=== PATIENT | female | born 1975 | race Hispanic/Latino ===

== ENCOUNTER 2020-04-29 06:18 | Day surgery (SDC) | payer BC ==
--- OUTSIDE RECORDS SUMMARY | 2020-04-29 06:21 | XMS REPORT ---
:1975 Author Organization [facility] Address [address] [place], [address] [place] [address] Care Team Providers Name Role Phone Lloyd Unavailable [phone] PROBLEMS Type Condition ICD9-CM [id number] Onset Condition SNOMED Code Notes Code Code Dates Status Problem Current F32.1 Active 40066165 moderate episode of major depressive disorder without prior episode Problem MARIKA F41.1 Active 64817127 (generalized anxiety disorder) Problem Non-seasonal J30.89 Active 96777518 allergic rhinitis, unspecified trigger ALLERGIES Allergen (clinical drug Drug/Non Drug Allergy Reaction Allergy Type Onset Date Status ingredient) documented on EMR zolpidem Ambien([facility] [place] Drug Allergy Active Code:[address]-96) ENCOUNTERS from 1975 to 2020-04-02 Encounter Location Date Provider Diagnosis [facility] [address] [place], [facility] [address], [place] [address] depressive dis order without prior e pisode F32.1 ; MARIKA (generalized an xiety disorder) F41.1 ; Non-seasonal al lergic rhinitis, unspe cified trigger J30.89 and Hematochezia K9 2.1 IMMUNIZATIONS Vaccine Route Administration Date Status Kenalog (Triamcinolone) IM Intramuscular Apr 02, 2020 Adminis tered SOCIAL HISTORY Tobacco Use: Social History Observation Description Date Details (start date - stop date) Never Smoker Sex Assigned At : Social History Observation Description Sex Assigned At Unknown PHQ9 Question Answer Notes Little interest or pleasure in doing things More than half t he days Feeling down, depressed, or hopeless More than half the days Trouble falling or staying asleep or sleeping too much More than half the days Feeling tired or having little energy Several days Poor appetite or overeating Several days Feeling bad about yourself, or that you are a failure, Sever al days or have let yourself or your family down Trouble concentrating on things, such as reading the Not at all newspaper or watching television Moving or speaking so slowly that other people could Not at all have noticed; or the opposite, being so fidgety or restless that you have been moving around a lot more than usual Total Score 9 Interpretation Mild Depression Thoughts that you would be better off or of Not at all hurting yourself in some way Alcohol Screen Question Answer Notes Did you have a drink containing alcohol in the past Yes year? Points 1 Interpretation Negative How often did you have a drink containing alcohol in Monthly or less (1 point) the past year? Tobacco Use/Smoking Question Answer Notes Are you a never smoker REASON FOR REFERRAL No Information VITAL SIGNS Height 60 in Mar, Weight 140.9 lbs Mar, Temperature 97.4 degrees Fahrenheit Mar, BMI 27.51 kg/m2 Mar, Oximetry 98 % Mar, Respiratory Rate 16 /min Mar, Blood pressure systolic 136 mm Hg Mar, Blood pressure diastolic 77 mm Hg Mar, MEDICATIONS Medication SIG (Take, Route, Frequency, Start Date End Date Status Duration) Citalopram Hydrobromide 20 MG 1 tablet Orally Once a day Active for 90 days PROCEDURES No Information RESULTS No Results REASON FOR VISIT Nwpt est. care MEDICAL (GENERAL) HISTORY Type Description Date Surgical History C sections 2002,2005 Goals Section No Information Health Concerns No Information MEDICAL EQUIPMENT No Information MENTAL STATUS No Information FUNCTIONAL STATUS No Information ASSESSMENTS Encounter Date Diagnosis Notes Mar, MARIKA (generalized anxiety disorder) (ICD- 10 - F41.1) Mar, Current moderate episode of major depres sive disorder without prior episode (ICD-10 - F32.1) Mar, Hematochezia (ICD-10 - K92.1) Mar, Non-seasonal allergic rhinitis, unspecif ied trigger (ICD-10 - J30.89) PLAN OF TREATMENT Medication Medication Name Sig Start Date Stop Date Citalopram Hydrobromide 20 MG 1 tablet Orally Once a day for 90 days Treatment Notes Assessment Notes Clinical Notes Current moderate episode of major Actively listented. Suppor t given. depressive disorder without prior Discussed treatment option s. episode Medication + Counseling/Therapy. Infomation provided for psychologist for therapy options, encouraged to call to make an appt. continue Celexa. Side effect panel discussed.-- Depression Education: Depression is a brain disease that makes you sad, but it is different than normal sadness. Depressed people feel down most of the time for at least 2 weeks. They also have at least one of these 2 symptoms: 1. They no longer enjoy or care about doing the things they used to like to do. 2. They feel sad, down, hopeless, or cranky most of the day, almost every day. It can also make you: lose or gain weight; sleep too much or too little; fell tired or like you have no energy; feel guilty or like you are worth nothing; forget things or feel confused; and think about or suicide. Medication and/or seeing a counselor (such as a psychiatrist, psychologist, nurse or social and political studies professor) may be necessary to treat depression. Both treatments take time to work. If you ever feel like you might hurt yourself or some else, then call your doctor or call 911 or go to the ER. MARIKA (generalized anxiety disorder) . Stable with [employer]. Edu cation given. , -- Anxiety Education: Anxiety is a feeling of anxiousness or nervousness. Being extremely anxious or worried on most days for 6 months or longer is not normal. This is a type of anxiety disorder. This disorder can make it hard to do everyday tasks. Other types of anxiety include: post traumatic stress disorder, panic disorder, and phobias. Symptoms of anxiety may include: feeling worried or on the edge, trouble sleeping, or forgetting things. Feelings of stomach aches or chest tightness is another common symptom. Medicine, exercise, and other treatments like counseling, talk therapy, yoga, and massages maybe necessary to treat this disorder. Non-seasonal allergic rhinitis, To minimal relief with unspecified trigger ewqo-cqj-axwemsj medication will administer Kenalog IM in office for therapeutic reason. Side effect panel discussed. Start allergy testing process. Hematochezia Asymptomatic at this time. Referral to general surgeon for diagnostic colonoscopy. Next Appt Details 06/2020 WELLNESS + LABS Reason: Provider Name:Dilan Desai, 2020-07-06 0 8:20:00 AM, [address], [address], [place], [address], Insurance Providers Payer Name Payer Payer Insured Name Patient Coverage Covera End Address Phone Relationship to Start Date Young e Insured [employer] [phone] Phani Asif [id number] 19 19 and David [id number] [phone] a V [id number] [id number] [phone]
--- OUTSIDE RECORDS SUMMARY | 2020-04-29 06:21 | XMS REPORT | Continuity of Care Document ---
:1975 Author Organization [facility] t Address [address] [place] [address] Care Team Providers Name Role Phone Unavailable Unavailable Unavailable Problems This patient has no known problems. Allergies, Adverse Reactions, Alerts This patient has no known allergies or adverse reactions. Medications This patient has no known medications. Procedures This patient has no known procedures. Encounters Start End Encounter Admission Attending Care Care Encounter Source Date/Time Date/Time Type Type Clinicians Facility Department ID 2020-04-21 2020-04-21 Outpatient [facility] [id number] [facility] 2020-04-17 2020-04-17 Outpatient [facility] [id number] [facility] 2020-04-02 2020-04-02 Outpatient [facility] [id number] [facility] 2020-04-02 2020-04-02 Outpatient [facility] [id number] [facility] Results This patient has no known results.
--- OUTSIDE RECORDS SUMMARY | 2020-04-29 06:22 | XMS REPORT ---
:1975 Author Organization [facility] Address [address] [place] [address] [place] [address] Care Team Providers Name Role Phone Lloyd Unavailable [phone] PROBLEMS Type Condition ICD9-CM AMI70-SF Onset Condition SNOMED Code Notes Code Code Dates Status Problem Current F32.1 Active 22681327 moderate episode of major depressive disorder without prior episode Problem MARIKA F41.1 Active 22109662 (generalized anxiety disorder) Problem Non-seasonal J30.89 Active 60081220 allergic rhinitis, unspecified trigger ALLERGIES Allergen (clinical drug Drug/Non Drug Allergy Reaction Allergy Type Onset Date Status ingredient) documented on EMR zolpidem Ambien([facility] Unknown Drug Allergy Active Code:[address]-55) ENCOUNTERS from 1975 to 2020-04-03 Encounter Location Date Provider Diagnosis [facility] [address], [place] [address] IMMUNIZATIONS Vaccine Route Administration Date Status Kenalog [...] REASON FOR REFERRAL No Information VITAL SIGNS No information MEDICATIONS Medication SIG (Take, Route, Frequency, Start Date End Date Status Duration) Citalopram Hydrobromide 20 MG 1 tablet Orally Once a day Active for 90 days PROCEDURES No Information RESULTS No Results REASON FOR VISIT Allergy Testing Benefits MEDICAL (GENERAL) HISTORY Type Description Date Surgical History C sections 2002,2006 Goals Section No Information Health Concerns No Information MEDICAL EQUIPMENT No Information MENTAL STATUS No Information FUNCTIONAL STATUS No Information ASSESSMENTS No Information PLAN OF TREATMENT Medication Medication Name Sig Start Date Stop Date Citalopram Hydrobromide 20 MG 1 tablet Orally Once a day for 90 days Next Appt Details Provider Name:[facility] lLoyd, 2020-07-06 0 8:20:00 AM, [address], [address], [place], [address], Insurance Providers Payer Name Payer Payer Insured Name Patient Coverage Covera ge End Address Phone Relationship to Start Date Young e Insured [employer] [place] [employer] [phone] Phani Asif [id number] 19 19 and David [id number] 87 a V [id number] [id number] [phone]
--- OUTSIDE RECORDS SUMMARY | 2020-04-29 06:22 | XMS REPORT ---
:1975 Author Organization [facility] Address [address] [place], [address] [place] [address] Care Team Providers Name Role Phone David Unavailable [phone] PROBLEMS Type Condition ICD9-CM [id number] Onset Condition SNOMED Code Notes Code Code Dates Status Problem Current F32.1 Active 92940452 moderate episode of major depressive disorder without prior episode Problem MARIKA F41.1 Active 00026807 (generalized anxiety disorder) Problem Non-seasonal J30.89 Active 08976663 allergic rhinitis, unspecified trigger ALLERGIES Allergen (clinical drug Drug/Non Drug Allergy Reaction Allergy Type Onset Date Status ingredient) documented on EMR zolpidem Ambien([facility] Unknown Drug Allergy Active Code:[address]-09) ENCOUNTERS from 1975 to 2020-04-21 Encounter Location Date Provider Diagnosis [facility] [address] [facility] [address] [place] Apr, [place] [address] moderate Family Medicine [address], [place] [address] depressive dis order without prior e pisode F32.1 ; MARIKA (generalized an xiety disorder) F41.1 ; Non-seasonal al lergic rhinitis, unspe cified trigger J30.89 ; Hematochezia K9 2.1 and Acute diarr hea R19.7 IMMUNIZATIONS Vaccine Route Administration Date Status Kenalog [...] No Information VITAL SIGNS Height 60 in Apr, Weight 141.0 lbs Apr, Temperature 98.6 degrees Fahrenheit Apr, BMI 27.53 kg/m2 Apr, Oximetry 98 % Apr, Respiratory Rate 18 /min Apr, Blood pressure systolic 134 mm Hg Apr, Blood pressure diastolic 77 mm Hg Apr, MEDICATIONS Medication SIG (Take, Route, Start Date End Date Status Frequency, Duration) Dicyclomine HCl 20 MG 1 tablet Orally Three Apr, 10 May, 20 20 Active times a day for 30 day(s) Nexium 24HR Active Citalopram Hydrobromide 20 1 tablet Orally Once a Active MG day for 90 days PROCEDURES No Information RESULTS No Results REASON FOR VISIT Stomach pain and diarrhea due to eating spicy food. In office. MEDICAL (GENERAL) HISTORY Type Description Date Surgical History C sections 2002,2006 Goals Section No Information Health Concerns No Information MEDICAL EQUIPMENT No Information MENTAL STATUS No Information FUNCTIONAL STATUS No Information ASSESSMENTS Encounter Date Diagnosis Notes Apr, Acute diarrhea (ICD-10 - R19.7) Apr, MARIKA (generalized anxiety disorder) (ICD- 10 - F41.1) Apr, Current moderate episode of major depres sive disorder without prior episode (ICD-10 - F32.1) Apr, Hematochezia (ICD-10 - K92.1) Apr, Non-seasonal allergic rhinitis, unspecif ied trigger (ICD-10 - J30.89) PLAN OF TREATMENT Medication Medication Name Sig Start Date Stop Date Dicyclomine HCl 20 MG 1 tablet Orally Three times a Apr, May, day for 30 day(s) Citalopram Hydrobromide 20 MG 1 tablet Orally [...] as a psychiatrist, psychologist, nurse or social sciences instructor) may be necessary to treat depression. Both treatments take time to work. If you ever feel like you might hurt yourself or some else, then call your doctor or call 911 or go to the ER. MARIKA (generalized anxiety disorder) . Stable with Celexa. Edu cation given. , -- Anxiety Education: [...] rhinitis, To minimal relief with unspecified trigger [id number]-ujzcskb medication will administer Kenalog IM in office for therapeutic reason. Side effect panel discussed. Start allergy testing process. Hematochezia Asymptomatic at this time. Referred to general surgeon for diagnostic colonoscopy during last encounter Acute diarrhea improving with dark tarry stoolsnormal PE and VShas a colonscopy in one week (hx of hematochezia)stop immodium, but continue nexium and peptoalternate water and electrolyte infused fluidsrecommend BRAT diet and avoid greasy, oily, fried, acidic, and spicy foods(she ate at [facility])go to the ED if you can not tolerate PO fluids and have decreased urine.she agrees and understands plan of care Next Appt Details 3 Months Reason:already has an appt with Dr Desai in Jun 2020 for 3 month f/u Provider Name:Dilanmanuela Desai, 2020-07-06 0 8:20:00 AM, [address], [address], [place], [address], Follow Up:3 Monthsalready has an appt with Dr Desai in Jun 2020 for 3 month f/u Insurance Providers Payer Name Payer Payer Insured Name Patient Coverage Covera ge End Address Phone Relationship to Start Date Young e Insured [employer] [phone] Phani Asif [id number] 19 19 and David [id number] 87 a V [id number] [id number] [phone]
--- OUTSIDE RECORDS SUMMARY | 2020-04-29 06:22 | XMS REPORT ---
:1975 Author Organization [facility] Address [address] [place], [address] [place] [address] Care Team Providers Name Role Phone Desai Unavailable [phone] PROBLEMS Type Condition ICD9-CM TNN90-BZ Onset Condition SNOMED Code Notes Code Code Dates Status Problem Current F32.1 Active 88525857 moderate episode of major depressive disorder without prior episode Problem MARIKA F41.1 Active 12301536 (generalized anxiety disorder) Problem Non-seasonal J30.89 Active 70761375 allergic rhinitis, unspecified trigger ALLERGIES Allergen (clinical drug Drug/Non Drug Allergy Reaction Allergy Type Onset Date Status ingredient) documented on EMR zolpidem Ambien([facility] Unknown Drug Allergy Active Code:[address]-03) ENCOUNTERS from 1975 to 2020-04-17 Encounter Location Date Provider Diagnosis [facility] [address] [facility] [address] [place] Apr, [facility] Desai All ergic rhinitis, Family Medicine [address], [facility] [place] [address] seasonality, unspecified tri gger J30.9 IMMUNIZATIONS Vaccine Route Administration Date Status Kenalog [...] VITAL SIGNS Height 60 in Apr, Weight 140.2 lbs Apr, Temperature 97.3 degrees Fahrenheit Apr, BMI 27.38 kg/m2 Apr, Oximetry 98 % Apr, Respiratory Rate 17 /min Apr, Blood pressure systolic 139 mm Hg Apr, Blood pressure diastolic 74 mm Hg Apr, MEDICATIONS Medication SIG (Take, Route, Frequency, Start Date End Date Status Duration) Citalopram Hydrobromide 20 MG 1 tablet Orally Once a day Active for 90 days PROCEDURES No Information RESULTS No Results REASON FOR VISIT Allergy test MEDICAL (GENERAL) HISTORY Type Description Date Surgical History C sections 2002,2005 Goals Section No Information Health Concerns No Information MEDICAL EQUIPMENT No Information MENTAL STATUS No Information FUNCTIONAL STATUS No Information ASSESSMENTS Encounter Date Diagnosis Notes Apr, Allergic rhinitis, unspecified seasonali ty, unspecified trigger (ICD-10 - J30.9) PLAN OF TREATMENT Treatment Notes Assessment Notes Clinical Notes Allergic rhinitis, unspecified Due to the chronicity along w ith seasonality, unspecified trigger affecting ADLs, will coduct allergy testing. Discussed options with patient along with risks/complications/benefits and alternative methods. Consent signed. Education given. Patient tolerated it well. No complications. Results reviewed with patient and treatment options. Patient wants to HOLD OFF with immunotherapy. Ok to resume antihistamine. See scanned documents Next Appt Details prn Reason: Provider Name:Dilan Desai, 2020-07-06 0 8:20:00 AM, [address], [address], [place], [address], Insurance Providers Payer Name Payer Payer Insured Name Patient Coverage Covera ge End Address Phone Relationship to Start Date Young e Insured [employer] [phone] Phani Asif [id number] 19 19 and David [id number] [phone] V [id number] [id number] [phone]
[2020-04-29] MEDS ORDERED: Ringers Lactate 1,000 ML IV ONE (07:01)
[2020-04-29 07:10] LABS: Specific Gravity 1.025 (1.005-1.030)
[2020-04-29] MEDS ORDERED: propofoL 200 MG/20 ML VIAL IV ONE ×2 (07:50→07:51)
[2020-04-29] MEDS ORDERED: LIDOCAINE 1% MPF 5 ML VIAL ONE (07:50)
[2020-04-29 08:45] VITALS: TEMP 96.1
[2020-04-29 08:46] VITALS: BP 110/77; O2SAT 100
== END 2020-04-29 08:47 | disposition home or self-care (01) ==
LOC: OR 06:18
PROVIDERS: ATTEND Surgery
PROC: 0DBM8ZX Excision of Descending Colon, Via Natural or Artificial Opening Endoscopic, Diagnostic (ICD-10-PCS; 2020-04-29)
PROC: 0DJD8ZZ Inspection of Lower Intestinal Tract, Via Natural or Artificial Opening Endoscopic (ICD-10-PCS; principal; 2020-04-29 07:30)
DX: D12.9 Benign neoplasm of anus and anal canal (principal); F32.9 Major depressive disorder, single episode, unspecified; Z20.828 Contact with and (suspected) exposure to other viral communicable diseases
CPT/HCPCS: 81025; 88305; 45384; U0002; J2704 ×2; J7120